=== PATIENT | male | born 1965 | race Caucasian/White ===

== ENCOUNTER 2018-03-04 00:47 | Inpatient (IN) | payer OTHER, MEDICAID ==
[~2018-03-04] VITALS: Ht 177.8 cm; Wt 55.8 kg
[~2018-03-04 00:47] MED LIST: AZIT250T PO; BENZ1TAB10 PO; CARB15OT; GABA400C PO; OLAN15TA5 PO; RISP1 PO
[2018-03-04] MEDS ORDERED: LORazepam 1 MG TABLET PO PRN (04:00)
[2018-03-04] MEDS ORDERED: QUEtiapine FUMARATE 100 MG TABLET PO PRN (04:00)
[2018-03-04] MEDS ORDERED: ZOLPIDEM TARTRATE 10 MG TABLET PO PRN (04:00)
[2018-03-04 04:57] VITALS: BP 101/69
[2018-03-04] MEDS ORDERED: BACITRACIN 28.4 GM OINTMENT TP PRN (06:30)
[2018-03-04] MEDS ORDERED: IBUPROFEN 600 MG TABLET PO PRN (06:30)
[2018-03-04] MEDS ORDERED: BENZOCAINE/MENTHOL LOZENGE MM PRN (06:30)
[2018-03-04] MEDS ORDERED: MAG HYDROX/AL HYDROX/SIMETH ES 30 ML SUSPENSION UDCUP PO PRN (06:30)
[2018-03-04] MEDS ORDERED: LOPERAMIDE HCL 2 MG CAPSULE PO PRN (06:30)
[2018-03-04] MEDS ORDERED: ONDANSETRON HCL 4 MG TABLET PO PRN (06:30)
[2018-03-04] MEDS ORDERED: PNEUMOCOCCAL VACCINE POLYVALENT 0.5 ML VIAL [PPSV23] IM ONE (06:30)
[2018-03-04] MEDS ORDERED: MAGNESIUM HYDROXIDE SUSPENSION 30 ML UDCUP PO PRN (06:30)
[2018-03-04] MEDS ORDERED: ALBUTEROL SULFATE HFA 90 MCG/PUFF 8 GM INHALER IH PRN (06:30)
[2018-03-04] MEDS ORDERED: PETROLATUM,WHITE 71 GM JELLY TP PRN (06:30)
[2018-03-04] MEDS ORDERED: CloNIDine HCL 0.1 MG TABLET PO PRN (06:30)
[2018-03-04] MEDS ORDERED: ACETAMINOPHEN 325 MG TABLET PO PRN (06:30)
[2018-03-04 08:04] VITALS: BP 115/68
[2018-03-04] MEDS ORDERED: VENL75CA55 PO (08:52)
[2018-03-04] MEDS ORDERED: NAPR-58 PO (08:52)
[2018-03-04] MEDS ORDERED: QUET100T PO (08:52)
[2018-03-04] MEDS ORDERED: GLEC1TAB PO (08:52)
[2018-03-04] MEDS: CHOLECALCIFEROL (VIT D3) 1,000 UNITS TABLET PO SCH (08:58)
[2018-03-04] MEDS: MULTIVITAMINS WITH MINERALS, THERAPEUTIC TABLET PO SCH (08:58)
[2018-03-04] MEDS: VENLAFAXINE HCL 75 MG ER CAPSULE PO SCH (12:33)
[2018-03-04] MEDS: CITALOPRAM HYDROBROMIDE 20 MG TABLET PO SCH (12:33)
[2018-03-04 16:15] VITALS: BP 108/69
[2018-03-04] MEDS: QUEtiapine FUMARATE 25 MG TABLET PO SCH (20:53)
[2018-03-04] MEDS ORDERED: *NON-FORMULARY MED [ENTER DRUG, DOSE, FREQ IN COMMENTS] CLINICAL SCH (21:00)
[2018-03-05 06:30] VITALS: BP 126/76
[2018-03-05] MEDS: CITALOPRAM HYDROBROMIDE 20 MG TABLET PO SCH (08:06)
[2018-03-05] MEDS: MULTIVITAMINS WITH MINERALS, THERAPEUTIC TABLET PO SCH (08:06)
[2018-03-05] MEDS: CHOLECALCIFEROL (VIT D3) 1,000 UNITS TABLET PO SCH (08:06)
[2018-03-05] MEDS: QUEtiapine FUMARATE 25 MG TABLET PO SCH ×2 (08:06→20:05)
[2018-03-05] MEDS: VENLAFAXINE HCL 75 MG ER CAPSULE PO SCH (08:06)
[2018-03-05 08:35] VITALS: BP 112/70
[2018-03-05] MEDS ORDERED: MAVYRET PO SCH (09:00)
[2018-03-05] MEDS: CELECOXIB 100 MG CAPSULE PO SCH (16:14)
[2018-03-05 16:30] VITALS: BP 112/60
[2018-03-06 02:00] VITALS: BP 104/65
[2018-03-06] MEDS: CITALOPRAM HYDROBROMIDE 20 MG TABLET PO SCH (08:03)
[2018-03-06] MEDS: VENLAFAXINE HCL 75 MG ER CAPSULE PO SCH (08:03)
[2018-03-06] MEDS: QUEtiapine FUMARATE 25 MG TABLET PO SCH ×2 (08:03→20:53)
[2018-03-06] MEDS: MULTIVITAMINS WITH MINERALS, THERAPEUTIC TABLET PO SCH (08:03)
[2018-03-06] MEDS: CELECOXIB 100 MG CAPSULE PO SCH ×2 (08:04→16:58)
[2018-03-06] MEDS: CHOLECALCIFEROL (VIT D3) 1,000 UNITS TABLET PO SCH (08:04)
[2018-03-06 08:11] LABS: BAND NEUTROPHILS % (MANUAL) 0 % (0-5)
[2018-03-06 08:26] LABS: HEMATOCRIT 41.1 % (41-53); MEAN CORPUSCULAR HEMOGLOBIN 31.6 pg (26.0-34.0); MEAN CORPUSCULAR HGB CONC 34.1 G/dL (31.0-37.0); MEAN CORPUSCULAR VOLUME 93 fL (80-100); PLATELET COUNT (AUTO) 351 K/uL (150-450); RED BLOOD CELL COUNT(AUTO) 4.43 MIL/uL (4.50-5.90); RED CELL DISTRIBUTION WIDTH 13.7 % (11.5-14.5)
[2018-03-06 08:41] LABS: ANION GAP 6 mmol/L (8-16); CALCIUM, TOTAL 9.1 mg/dL (8.8-10.5); CARBON DIOXIDE 30 mmol/L (22-29); CHLORIDE 101 mmol/L (98-107); CHOL/HDL RATIO 2.1 (4.2-7.3); CHOLESTEROL 150 mg/dL (131-200); CREATININE 0.72 mg/dL (0.60-1.30); GLOMERULAR FILTR. RATE CALC > 60 mL/min (>60); GLUCOSE,RANDOM 95 mg/dL (70-110); HDL CHOLESTEROL 70 mg/dL (40-60); LDL CHOL (CALC.) 65 mg/dL (0-130); POTASSIUM 4.5 mmol/L (3.5-5.1); SODIUM SERUM 137 mmol/L (136-145); THYROID STIMULATING HORMONE 1.59 uIU/mL (0.36-3.74); TRIGLYCERIDES 75 mg/dL (15-150); UREA NITROGEN, BLOOD 20 mg/dL (7-18)
[2018-03-06 08:51] VITALS: BP 105/66
[2018-03-06 11:48] LABS: EOSINOPHILS % (MANUAL) 3 % (1-6); LYMPHOCYTES % (MANUAL) 32 % (22-44); MONOCYTES % (MANUAL) 3 % (2-9); SEGMENTED NEUTROPHILS % 62 % (40-70)
[2018-03-06 16:05] VITALS: BP 105/68
[2018-03-07 05:59] VITALS: BP_SYST 104; BP_SYST 120; BP_DIAS 71; BP_DIAS 75
[2018-03-07] MEDS: CITALOPRAM HYDROBROMIDE 20 MG TABLET PO SCH (08:05)
[2018-03-07] MEDS: MULTIVITAMINS WITH MINERALS, THERAPEUTIC TABLET PO SCH (08:05)
[2018-03-07] MEDS: VENLAFAXINE HCL 75 MG ER CAPSULE PO SCH (08:05)
[2018-03-07] MEDS: CHOLECALCIFEROL (VIT D3) 1,000 UNITS TABLET PO SCH (08:05)
[2018-03-07] MEDS: QUEtiapine FUMARATE 25 MG TABLET PO SCH ×2 (08:05→20:03)
[2018-03-07] MEDS: CELECOXIB 100 MG CAPSULE PO SCH ×2 (08:05→16:57)
[2018-03-07 08:31] VITALS: BP 111/74
[2018-03-07 16:35] VITALS: BP 111/66
[2018-03-08 06:00] VITALS: BP 120/72
[2018-03-08] MEDS: CELECOXIB 100 MG CAPSULE PO SCH ×2 (07:46→16:08)
[2018-03-08] MEDS: VENLAFAXINE HCL 75 MG ER CAPSULE PO SCH (07:46)
[2018-03-08] MEDS: CHOLECALCIFEROL (VIT D3) 1,000 UNITS TABLET PO SCH (07:46)
[2018-03-08] MEDS: CITALOPRAM HYDROBROMIDE 20 MG TABLET PO SCH (07:47)
[2018-03-08] MEDS: MULTIVITAMINS WITH MINERALS, THERAPEUTIC TABLET PO SCH (07:47)
[2018-03-08] MEDS: QUEtiapine FUMARATE 25 MG TABLET PO SCH ×2 (07:49→20:09)
[2018-03-08 08:16] VITALS: BP 122/75
[2018-03-08 16:01] VITALS: BP 108/64
[2018-03-09 03:30] VITALS: BP 110/68
[2018-03-09 08:20] VITALS: BP 113/74
[2018-03-09] MEDS: QUEtiapine FUMARATE 25 MG TABLET PO SCH (08:25)
[2018-03-09] MEDS: MULTIVITAMINS WITH MINERALS, THERAPEUTIC TABLET PO SCH (08:25)
[2018-03-09] MEDS: VENLAFAXINE HCL 75 MG ER CAPSULE PO SCH (08:25)
[2018-03-09] MEDS: CITALOPRAM HYDROBROMIDE 20 MG TABLET PO SCH (08:25)
[2018-03-09] MEDS: CELECOXIB 100 MG CAPSULE PO SCH (08:25)
[2018-03-09] MEDS: CHOLECALCIFEROL (VIT D3) 1,000 UNITS TABLET PO SCH (08:25)
[2018-03-09] MEDS ORDERED: CITA20TA17 PO (08:30)
[2018-03-09] MEDS ORDERED: QUET25TA34 PO (08:30)
[2018-03-09] MEDS ORDERED: VENL75CA55 PO (08:30)
[2018-03-09] MEDS ORDERED: CITA-106 PO (08:43)
[2018-03-09] MEDS ORDERED: VITAD1000 PO (08:49)
[2018-03-09] MEDS ORDERED: CELE100 PO (08:49)
== END 2018-03-09 10:00 | disposition home or self-care (01) | DRG 885 ==
LOC: B2X 04:09 → B2S 03-05 16:50
DX: F25.1 Schizoaffective disorder, depressive type (principal); R45.851 Suicidal ideations; Z59.0 Homelessness; G47.00 Insomnia, unspecified; G89.29 Other chronic pain; J44.9 Chronic obstructive pulmonary disease, unspecified; M06.9 Rheumatoid arthritis, unspecified; Z96.649 Presence of unspecified artificial hip joint; F17.200 Nicotine dependence, unspecified, uncomplicated; E55.9 Vitamin D deficiency, unspecified; B18.2 Chronic viral hepatitis C; Z91.5 Personal history of self-harm
CPT/HCPCS: 82306; 83735; 84100; 84443; 85007

== ENCOUNTER 2021-06-17 16:36 | Inpatient (IN) | payer MEDICARE ==
[~2021-06-17] VITALS: Ht 180.3 cm; Wt 64.0 kg
[~2021-06-17 16:36] MED LIST changes: -AZIT250T PO; -BENZ1TAB10 PO; -CARB15OT; +CELE100 PO; +CHOL100018 PO; +CITA-144 PO; +CITA20TA17 PO; -GABA400C PO; -OLAN15TA5 PO; +QUET100T PO; +QUET25TA36 PO; -RISP1 PO; +VENL75CA55 PO
[2021-06-17] MEDS ORDERED: PNEUMOCOCCAL VACCINE POLYVALENT 0.5 ML VIAL [PPSV23] IM. ONE (18:15)
[2021-06-17] MEDS ORDERED: HALOPERIDOL 5 MG TABLET PO PRN (19:00)
[2021-06-17] MEDS ORDERED: LORazepam 2 MG TABLET PO PRN (19:00)
[2021-06-17] MEDS ORDERED: ZOLPIDEM TARTRATE 10 MG TABLET PO PRN (19:00)
[2021-06-17 19:40] VITALS: BP 135/77
[2021-06-17] MEDS: QUEtiapine FUMARATE 25 MG TABLET PO SCH (21:26)
[2021-06-18 05:41] VITALS: BP 113/72
[2021-06-18] MEDS ORDERED: OMEPRAZOLE 20 MG CAPSULE PO PRN (06:30)
[2021-06-18] MEDS ORDERED: IBUPROFEN 600 MG TABLET PO PRN (06:30)
[2021-06-18] MEDS ORDERED: DOCUSATE SODIUM 100 MG CAPSULE PO PRN (06:30)
[2021-06-18] MEDS ORDERED: CloNIDine HCL 0.1 MG TABLET PO PRN (06:30)
[2021-06-18] MEDS ORDERED: ALBUTEROL SULFATE HFA 90 MCG/PUFF 8 GM INHALER IH PRN (06:30)
[2021-06-18] MEDS ORDERED: MAG HYDROX/AL HYDROX/SIMETH ES 30 ML SUSPENSION UDCUP PO PRN (06:30)
[2021-06-18] MEDS ORDERED: ACETAMINOPHEN 325 MG TABLET PO PRN (06:30)
[2021-06-18] MEDS ORDERED: ONDANSETRON HCL 4 MG TABLET PO PRN (06:30)
[2021-06-18] MEDS ORDERED: LOPERAMIDE HCL 2 MG CAPSULE PO PRN (06:30)
[2021-06-18] MEDS ORDERED: PETROLATUM,WHITE 28 GM JELLY TP PRN (06:30)
[2021-06-18] MEDS ORDERED: MAGNESIUM HYDROXIDE SUSPENSION 30 ML UDCUP PO PRN (06:30)
[2021-06-18] MEDS ORDERED: BENZOCAINE/MENTHOL LOZENGE PO PRN (06:30)
[2021-06-18] MEDS ORDERED: BACITRACIN 28 GM OINTMENT TP PRN (06:30)
[2021-06-18] MEDS: CITALOPRAM HYDROBROMIDE 20 MG TABLET PO SCH (08:32)
[2021-06-18] MEDS: QUEtiapine FUMARATE 25 MG TABLET PO SCH ×2 (08:32→20:20)
[2021-06-18 08:33] VITALS: BP 116/62
[2021-06-18] MEDS: VENLAFAXINE HCL 75 MG ER CAPSULE PO SCH (08:33)
[2021-06-18] MEDS: CHOLECALCIFEROL (VIT D3) 1,000 UNITS [25 MCG] TABLET PO SCH (08:33)
[2021-06-18 16:27] VITALS: BP 114/68
[2021-06-19 00:15] VITALS: BP 109/60
[2021-06-19 08:10] VITALS: BP 125/73
[2021-06-19] MEDS: CITALOPRAM HYDROBROMIDE 20 MG TABLET PO SCH (08:23)
[2021-06-19] MEDS: QUEtiapine FUMARATE 25 MG TABLET PO SCH ×2 (08:23→20:51)
[2021-06-19] MEDS: CHOLECALCIFEROL (VIT D3) 1,000 UNITS [25 MCG] TABLET PO SCH (08:23)
[2021-06-19] MEDS: VENLAFAXINE HCL 75 MG ER CAPSULE PO SCH (08:24)
[2021-06-19 16:06] VITALS: BP 121/75
[2021-06-20 05:46] VITALS: BP 110/64
[2021-06-20 07:58] LABS: BASOPHILS % (AUTO) 0.9 % (0.0-2.0); EOSINOPHILS % (AUTO) 2.9 % (1.0-6.0); HEMATOCRIT 44.5 % (41-53); LYMPHOCYTES # (AUTO) 1.8 K/uL (1.0-4.8); LYMPHOCYTES % (AUTO) 26.3 % (22.0-44.0); MEAN CORPUSCULAR HEMOGLOBIN 31.8 pg (26.0-34.0); MEAN CORPUSCULAR HGB CONC 33.6 G/dL (31.0-37.0); MEAN CORPUSCULAR VOLUME 95 fL (80-100); MONOCYTES # (AUTO) 0.6 K/uL (0.1-1.0); MONOCYTES % (AUTO) 8.3 % (2.0-9.0); NEUTROPHILS # (AUTO) 4.3 K/uL (1.8-7.7); NEUTROPHILS % (AUTO) 61.6 % (40.0-70.0); PLATELET COUNT (AUTO) 423 K/uL (150-450); RED BLOOD CELL COUNT(AUTO) 4.71 MIL/uL (4.50-5.90); RED CELL DISTRIBUTION WIDTH 13.3 % (11.5-14.5)
[2021-06-20 08:05] LABS: HEMOGLOBIN A1C 5.7 % (3.8-5.6)
[2021-06-20 08:25] VITALS: BP 120/73
[2021-06-20 08:42] LABS: ALANINE AMINOTRANSFERASE 28 U/L (12-78); ALBUMIN 3.8 g/dL (3.4-5.0); ALKALINE PHOSPHATASE 67 U/L (46-116); ANION GAP 8 mmol/L (8-16); ASPARTATE AMINOTRANSFERASE 14 U/L (15-37); BILIRUBIN,TOTAL 0.2 mg/dL (0.1-1.0); CALCIUM, TOTAL 9.5 mg/dL (8.8-10.5); CARBON DIOXIDE 29 mmol/L (22-29); CHLORIDE 102 mmol/L (98-107); CHOL/HDL RATIO 3.7 (4.2-7.3); CHOLESTEROL 160 mg/dL (131-200); CREATININE 0.81 mg/dL (0.60-1.30); FREE T4 (FREE THYROXINE) 0.88 ng/dL (0.76-1.46); GLOMERULAR FILTR. RATE CALC > 60 mL/min (>60); GLUCOSE,RANDOM 95 mg/dL (70-110); HDL CHOLESTEROL 43 mg/dL (40-60); LDL CHOL (CALC.) 97 mg/dL (0-130); SODIUM SERUM 139 mmol/L (136-145); THYROID STIMULATING HORMONE 2.06 uIU/mL (0.36-3.74); TOTAL PROTEIN, SERUM 8.1 g/dL (6.4-8.2); TRIGLYCERIDES 100 mg/dL (15-150); UREA NITROGEN, BLOOD 19 mg/dL (7-18)
[2021-06-20] MEDS: THIAMINE 100 MG TABLET PO SCH (08:46)
[2021-06-20] MEDS: FOLIC ACID 1 MG TABLET PO SCH (08:46)
[2021-06-20] MEDS: CITALOPRAM HYDROBROMIDE 20 MG TABLET PO SCH (08:46)
[2021-06-20] MEDS: QUEtiapine FUMARATE 25 MG TABLET PO SCH ×2 (08:46→20:24)
[2021-06-20] MEDS: VENLAFAXINE HCL 75 MG ER CAPSULE PO SCH (08:46)
[2021-06-20] MEDS: CHOLECALCIFEROL (VIT D3) 1,000 UNITS [25 MCG] TABLET PO SCH (08:46)
[2021-06-20] MEDS: MULTIVITAMINS WITH MINERALS, THERAPEUTIC TABLET PO SCH (09:09)
[2021-06-20 16:18] VITALS: BP 100/63
[2021-06-21 00:12] VITALS: BP 107/63
[2021-06-21 08:13] VITALS: BP 108/74
[2021-06-21] MEDS: MULTIVITAMINS WITH MINERALS, THERAPEUTIC TABLET PO SCH (08:14)
[2021-06-21] MEDS: THIAMINE 100 MG TABLET PO SCH (08:15)
[2021-06-21] MEDS: FOLIC ACID 1 MG TABLET PO SCH (08:15)
[2021-06-21] MEDS: VENLAFAXINE HCL 75 MG ER CAPSULE PO SCH (08:15)
[2021-06-21] MEDS: CITALOPRAM HYDROBROMIDE 20 MG TABLET PO SCH (08:15)
[2021-06-21] MEDS: QUEtiapine FUMARATE 25 MG TABLET PO SCH ×2 (08:15→20:29)
[2021-06-21] MEDS: CHOLECALCIFEROL (VIT D3) 1,000 UNITS [25 MCG] TABLET PO SCH (08:15)
[2021-06-21 16:08] VITALS: BP 102/70
[2021-06-22 00:14] VITALS: BP 114/71
[2021-06-22 07:30] LABS: COVID AG,FIA SOURCE NASAL SWAB
[2021-06-22] MEDS: CITALOPRAM HYDROBROMIDE 20 MG TABLET PO SCH (08:24)
[2021-06-22] MEDS: VENLAFAXINE HCL 75 MG ER CAPSULE PO SCH (08:24)
[2021-06-22] MEDS: THIAMINE 100 MG TABLET PO SCH (08:24)
[2021-06-22] MEDS: QUEtiapine FUMARATE 25 MG TABLET PO SCH ×2 (08:24→20:59)
[2021-06-22] MEDS: CHOLECALCIFEROL (VIT D3) 1,000 UNITS [25 MCG] TABLET PO SCH (08:24)
[2021-06-22] MEDS: MULTIVITAMINS WITH MINERALS, THERAPEUTIC TABLET PO SCH (08:24)
[2021-06-22] MEDS: FOLIC ACID 1 MG TABLET PO SCH (08:24)
[2021-06-22 08:32] VITALS: BP 119/93
[2021-06-22 16:13] VITALS: BP 119/68
[2021-06-23 04:30] VITALS: BP 127/78
[2021-06-23 08:12] VITALS: BP 62/18
[2021-06-23] MEDS: FOLIC ACID 1 MG TABLET PO SCH (08:41)
[2021-06-23] MEDS: MULTIVITAMINS WITH MINERALS, THERAPEUTIC TABLET PO SCH (08:41)
[2021-06-23] MEDS: CITALOPRAM HYDROBROMIDE 20 MG TABLET PO SCH (08:41)
[2021-06-23] MEDS: QUEtiapine FUMARATE 25 MG TABLET PO SCH (08:41)
[2021-06-23] MEDS: THIAMINE 100 MG TABLET PO SCH (08:41)
[2021-06-23] MEDS: CHOLECALCIFEROL (VIT D3) 1,000 UNITS [25 MCG] TABLET PO SCH (08:41)
[2021-06-23] MEDS: VENLAFAXINE HCL 75 MG ER CAPSULE PO SCH (08:41)
== END 2021-06-23 12:45 | disposition home or self-care (01) | DRG 885 ==
LOC: B2X 18:05
PROVIDERS: ADMIT Psychiatry & Neurology Psychiatry; ATTEND Psychiatry & Neurology Psychiatry
DX: F25.9 Schizoaffective disorder, unspecified (principal); B18.2 Chronic viral hepatitis C; J44.9 Chronic obstructive pulmonary disease, unspecified; M06.9 Rheumatoid arthritis, unspecified; E55.9 Vitamin D deficiency, unspecified; F41.9 Anxiety disorder, unspecified; G47.00 Insomnia, unspecified; F17.200 Nicotine dependence, unspecified, uncomplicated; Z20.822 Contact with and (suspected) exposure to COVID-19; Z71.6 Tobacco abuse counseling
CPT/HCPCS: 80053; 80061; 83036; 84439; 84443; 85025

== ENCOUNTER 2021-09-02 06:52 | Inpatient (IN) | payer MEDICARE, MEDICAID ==
[~2021-09-02] VITALS: Ht 180.3 cm; Wt 65.5 kg
[~2021-09-02 06:52] MED LIST changes: -CELE100 PO; -CHOL100018 PO; -CITA-144 PO; -QUET100T PO
[2021-09-02] MEDS ORDERED: HALOPERIDOL 5 MG TABLET PO PRN (12:30)
[2021-09-02] MEDS ORDERED: ZOLPIDEM TARTRATE 10 MG TABLET PO PRN (12:30)
[2021-09-02] MEDS ORDERED: LORazepam 2 MG TABLET PO PRN (12:30)
[2021-09-02 16:08] VITALS: BP 118/65
[2021-09-02] MEDS ORDERED: BENZOCAINE/MENTHOL LOZENGE PO PRN (18:15)
[2021-09-02] MEDS ORDERED: OMEPRAZOLE 20 MG CAPSULE PO PRN (18:15)
[2021-09-02] MEDS ORDERED: ONDANSETRON HCL 4 MG TABLET PO PRN (18:15)
[2021-09-02] MEDS ORDERED: DOCUSATE SODIUM 100 MG CAPSULE PO PRN (18:15)
[2021-09-02] MEDS ORDERED: PETROLATUM,WHITE 28 GM JELLY TP PRN (18:15)
[2021-09-02] MEDS ORDERED: LOPERAMIDE HCL 2 MG CAPSULE PO PRN (18:15)
[2021-09-02] MEDS ORDERED: ACETAMINOPHEN 325 MG TABLET PO PRN (18:15)
[2021-09-02] MEDS ORDERED: ALBUTEROL SULFATE HFA 90 MCG/PUFF 8 GM INHALER IH PRN (18:15)
[2021-09-02] MEDS ORDERED: IBUPROFEN 600 MG TABLET PO PRN (18:15)
[2021-09-02] MEDS ORDERED: BACITRACIN 28 GM OINTMENT TP PRN (18:15)
[2021-09-02] MEDS ORDERED: MAG HYDROX/AL HYDROX/SIMETH ES 30 ML SUSPENSION UDCUP PO PRN (18:15)
[2021-09-02] MEDS ORDERED: CloNIDine HCL 0.1 MG TABLET PO PRN (18:15)
[2021-09-02] MEDS ORDERED: MAGNESIUM HYDROXIDE SUSPENSION 30 ML UDCUP PO PRN (18:15)
[2021-09-03 06:04] VITALS: BP 112/62
[2021-09-03 08:08] LABS: BASOPHILS % (AUTO) 0.8 % (0.0-2.0); EOSINOPHILS % (AUTO) 2.7 % (1.0-6.0); HEMATOCRIT 40.8 % (41-53); HEMOGLOBIN 13.4 g/dL (13.5-17.5); LYMPHOCYTES # (AUTO) 1.8 K/uL (1.0-4.8); LYMPHOCYTES % (AUTO) 22.4 % (22.0-44.0); MEAN CORPUSCULAR HEMOGLOBIN 30.2 pg (26.0-34.0); MEAN CORPUSCULAR HGB CONC 32.8 G/dL (31.0-37.0); MEAN CORPUSCULAR VOLUME 92 fL (80-100); MONOCYTES # (AUTO) 0.7 K/uL (0.1-1.0); MONOCYTES % (AUTO) 8.9 % (2.0-9.0); NEUTROPHILS # (AUTO) 5.3 K/uL (1.8-7.7); NEUTROPHILS % (AUTO) 65.2 % (40.0-70.0); PLATELET COUNT (AUTO) 387 K/uL (150-450); RED BLOOD CELL COUNT(AUTO) 4.43 MIL/uL (4.50-5.90)
[2021-09-03 08:27] VITALS: BP 125/72
[2021-09-03 08:41] LABS: ALANINE AMINOTRANSFERASE 12 U/L (12-78); ALBUMIN 3.5 g/dL (3.4-5.0); ALKALINE PHOSPHATASE 62 U/L (46-116); ANION GAP 8 mmol/L (8-16); ASPARTATE AMINOTRANSFERASE 12 U/L (15-37); BILIRUBIN,TOTAL 0.6 mg/dL (0.1-1.0); CARBON DIOXIDE 29 mmol/L (22-29); CHLORIDE 103 mmol/L (98-107); CHOL/HDL RATIO 2.7 (4.2-7.3); CHOLESTEROL 167 mg/dL (131-200); CREATININE 0.67 mg/dL (0.60-1.30); FREE T4 (FREE THYROXINE) 0.92 ng/dL (0.76-1.46); GLOMERULAR FILTR. RATE CALC > 60 mL/min (>60); GLUCOSE,RANDOM 108 mg/dL (70-110); HDL CHOLESTEROL 61 mg/dL (40-60); LDL CHOL (CALC.) 85 mg/dL (0-130); POTASSIUM 4.2 mmol/L (3.5-5.1); SODIUM SERUM 140 mmol/L (136-145); THYROID STIMULATING HORMONE 1.32 uIU/mL (0.36-3.74); TOTAL PROTEIN, SERUM 7.2 g/dL (6.4-8.2); TRIGLYCERIDES 107 mg/dL (15-150); UREA NITROGEN, BLOOD 14 mg/dL (7-18)
[2021-09-03 09:03] LABS: HEMOGLOBIN A1C 5.6 % (3.8-5.6)
[2021-09-03] MEDS ORDERED: DICLOFENAC SODIUM 1% 100 GM GEL [2GM] TP PRN (11:00)
[2021-09-03] MEDS ORDERED: PNEUMOCOCCAL VACCINE POLYVALENT 0.5 ML VIAL [PPSV23] IM. ONE (14:15)
[2021-09-03 16:06] VITALS: BP 107/62
[2021-09-03] MEDS ORDERED: QUEtiapine FUMARATE 200 MG TABLET PO SCH (21:00)
[2021-09-04 03:47] VITALS: BP 126/61
[2021-09-04 08:21] VITALS: BP 110/68
[2021-09-04] MEDS ORDERED: QUEtiapine FUMARATE 100 MG TABLET PO SCH (09:00)
[2021-09-04] MEDS ORDERED: QUET100T PO (15:36)
[2021-09-04] MEDS ORDERED: QUET200T PO (15:36)
== END 2021-09-04 17:59 | disposition home or self-care (01) | DRG 885 ==
LOC: B3A 13:39
PROVIDERS: ADMIT Psychiatry & Neurology Psychiatry; ATTEND Psychiatry & Neurology Psychiatry
DX: F25.9 Schizoaffective disorder, unspecified (principal); F19.10 Other psychoactive substance abuse, uncomplicated; J44.9 Chronic obstructive pulmonary disease, unspecified; K59.00 Constipation, unspecified; M06.9 Rheumatoid arthritis, unspecified; Z59.00 Homelessness unspecified; Z88.0 Allergy status to penicillin; Z88.8 Allergy status to other drugs, medicaments and biological substances; Z71.6 Tobacco abuse counseling; Z72.0 Tobacco use
CPT/HCPCS: 80053; 80061; 83036; 84436; 84439; 84443; 85025; 86592; 90732; G0480

== ENCOUNTER 2022-11-30 09:53 | Emergency (ER) | payer MEDICARE, MEDICAID ==
[~2022-11-30] VITALS: Ht 177.8 cm; Wt 70.5 kg
[~2022-11-30 09:53] MED LIST changes: -CITA20TA17 PO; +QUET100T PO; +QUET200T PO; -QUET25TA36 PO; -VENL75CA55 PO
[2022-11-30 11:34] LABS: COVID AG,FIA SOURCE NASOPHARYNGEAL
[2022-11-30 11:40] LABS: BASOPHILS % (AUTO) 0.7 % (0.0-2.0); EOSINOPHILS % (AUTO) 0.8 % (1.0-6.0); HEMATOCRIT 38.3 % (41-53); HEMOGLOBIN 12.8 g/dL (13.5-17.5); LYMPHOCYTES # (AUTO) 1.5 K/uL (1.0-4.8); LYMPHOCYTES % (AUTO) 22.5 % (22.0-44.0); MEAN CORPUSCULAR HEMOGLOBIN 30.2 pg (26.0-34.0); MEAN CORPUSCULAR HGB CONC 33.4 G/dL (31.0-37.0); MEAN CORPUSCULAR VOLUME 90 fL (80-100); MONOCYTES # (AUTO) 0.8 K/uL (0.1-1.0); MONOCYTES % (AUTO) 11.7 % (2.0-9.0); NEUTROPHILS # (AUTO) 4.4 K/uL (1.8-7.7); NEUTROPHILS % (AUTO) 64.3 % (40.0-70.0); PLATELET COUNT (AUTO) 436 K/uL (150-450); RED BLOOD CELL COUNT(AUTO) 4.24 MIL/uL (4.50-5.90)
[2022-11-30 11:48] LABS: ANION GAP 4 mmol/L (8-16); CALCIUM, TOTAL 8.9 mg/dL (8.8-10.5); CARBON DIOXIDE 28 mmol/L (22-29); CHLORIDE 98 mmol/L (98-107); CREATININE 0.66 mg/dL (0.60-1.30); GLOMERULAR FILTR. RATE CALC > 60 mL/min (>60); GLUCOSE,RANDOM 107 mg/dL (70-110); POTASSIUM 3.7 mmol/L (3.5-5.1); SODIUM SERUM 130 mmol/L (136-145); UREA NITROGEN, BLOOD 13 mg/dL (7-18)
[2022-11-30 11:54] LABS: ALANINE AMINOTRANSFERASE 11 U/L (12-78); ALBUMIN 3.6 g/dL (3.4-5.0); ALKALINE PHOSPHATASE 74 U/L (46-116); ASPARTATE AMINOTRANSFERASE 12 U/L (15-37); BILIRUBIN,TOTAL 0.4 mg/dL (0.1-1.0); TOTAL PROTEIN, SERUM 7.9 g/dL (6.4-8.2)
[2022-11-30] MEDS ORDERED: HALOPERIDOL 5 MG TABLET PO ONE (12:15)
[2022-11-30] MEDS ORDERED: OLANZapine 5 MG RAPDIS TABLET PO ONE (12:15)
[2022-11-30] MEDS ORDERED: LORazepam 1 MG TABLET PO ONE (12:15)
[2022-11-30] MEDS ORDERED: DiphenhydrAMINE HCL 25 MG CAPSULE PO ONE (12:15)
[2022-11-30 12:40] VITALS: BP 127/77
[2022-11-30 13:41] LABS: APPEARANCE,URINE CLEAR (CLEAR); BILIRUBIN,URINE NEGATIVE (NEGATIVE); GLUCOSE, URINE (UA) NEGATIVE (NEGATIVE); KETONES,URINE NEGATIVE (NEGATIVE); LEUKOCYTE ESTERASE ,URINE NEGATIVE (NEGATIVE); NITRATE,URINE NEGATIVE (NEGATIVE); OCCULT BLOOD,URINE NEGATIVE (NEGATIVE); PH,URINE 5.5 (5.0-8.0); PROTEIN,URINE NEGATIVE (NEGATIVE); SPECIFIC GRAVITIY, URINE 1.008 (1.003-1.030); UROBILINOGEN,URINE <=1.0 mg/dL (<=1.0)
[2022-11-30 13:46] LABS: AMPHET/METH SCREEN,URINE POSITIVE (NEGATIVE); BARBITURATE SCREEN, URINE NEGATIVE (NEGATIVE); BENZODIAZEPINES SCREEN,URINE NEGATIVE (NEGATIVE); CANNABINOID SCREEN,URINE NEGATIVE (NEGATIVE); COCAINE SCREEN,URINE NEGATIVE (NEGATIVE); METHADONE SCREEN, URINE NEGATIVE (NEGATIVE); OPIATE SCREEN,URINE NEGATIVE (NEGATIVE)
[2022-11-30 13:55] LABS: PHENCYCLIDINE SCREEN,URINE NEGATIVE (NEGATIVE)
== END 2022-11-30 12:45 | disposition home or self-care (01) ==
LOC: EMS 10:08
DX: F25.1 Schizoaffective disorder, depressive type (principal); F15.10 Other stimulant abuse, uncomplicated; Z88.0 Allergy status to penicillin; Z88.8 Allergy status to other drugs, medicaments and biological substances; Z79.899 Other long term (current) drug therapy; F17.210 Nicotine dependence, cigarettes, uncomplicated; Z20.822 Contact with and (suspected) exposure to COVID-19
CPT/HCPCS: 99283; 87426; 80053; 85025; 36415; 81003; 80307 ×2; G0480